=== PATIENT | female | born 1995 | race Caucasian/White ===

== ENCOUNTER 2018-12-28 11:23 | Day surgery (SDC) | payer BC ==
--- NOTE | 2018-12-27 18:56 | PDGENHP ---
History and Physical - Chief Complaint RIGHT HIP PAIN - History of Present Illness 1. Right~Femoroacetabular impingement (RIYA) Cam type,~with~resultant labral tear 2. Right~Borderline Hip Dyplasia HISTORY OF PRESENT ILLNESS: Kimberleeis a~23 y.o.~very~active~female~who I have had the pleasure to consult on today.~I have enjoyed meeting her.~Yany~lives in [place].~~Kimberleeworks at [employer].~~Yany~is single;~yany~has 0~children. ~Kimberleeenjoys running, biking, hiking. Jacy's~right~hip pain started end of December 2017, with~no~recalled trauma or injury, and with~no~previous complaints.~Kimberleedoes not have~a known history of hip dysplasia. She did have a sacral stress fracture on the R side 5 years treated conservatively with rest. Presentation today is of~anterior~right~hip pain deep inside. ~The hip~does not~ wake her~at night and~does~click and catch on~her. Sitting~can be uncomfortable~ for her.~Kimberleedoes~report suffering from lower back pain episodes which preceded her hip pain and has been treated conservatively with chiropractor visits.~ Kimberleehas~participated in physical therapy (started this week at referred by Dr. Sanders)~and~has~tried other conservative measures including dry needling , chiropractic treatments and massage therapy.~Yany~has not~received sufficient symptomatic improvement. No previous hip injections. Jacy~has~utilized medication for pain management, including NSAID.~Kimberlee has used medication intermittently at symptom onset. Kimberleedenies issues with the left~hip. ~ Kimberleeunderstands that~yany~has a hip and pelvis problem which should be researched and wishes to get a better understanding of~her~hip status, followed by an establishment of a treatment strategy, hoping~yany~would be able to get back to~her~well being active life. History: Past medical history:~~ Patient~~has no past medical history on file. Relevant familial history:~None which is relevant~ Past surgical history:~ No. Surgery Anesthesia Year Outcome 1 Tonsillectomy Unknown 2014 Good Kimberleedenies problematic issues with general anesthesia in the past. I have reviewed, verified and agree with the past medical, surgical, family and social history. Current Medications:~has a current medication list which includes the following prescription(s): bupropion and melatonin. ALLERGIES:~has No Known Allergies. Objective: Physical Examination: Kimberleeis 5~feet~2~inches tall and weighs~110~Lbs. Kimberleeis AAO x3; she~is well-nourished, in NAD. Skin is warm and dry. ~Breathing is non-labored. ~CV with RRR by pulse. Abdomen is soft, NTND. Currently,~she~walks with a~normal~gait. Trendelenburg sign is~negative~and proprioception~is normal,~both~sides. She~presents~with moderate~signs of joint laxity.~Beightons Score:~6 (knees, thumbs, pinkys) She~is fit looking. ~~ Lower spine examination is~negative~for sciatic or femoral nerve irritation with negative~SLR &~femoral stretch tests. Range of motion of the spine is normal~for flexion, extension, and rotations,~with no~associated pain. Strength, Sensation and pulses are~normal -~bilaterally Ankles and knees exams are~normal~and~no~mal-alignment is evident.~ Yany~has~no leg length discrepancy. Thigh circumference is~symmetric~with no evidence for muscle atrophy~on both~ sides. Hip ROM (degrees): FL ER At 90~hip FL IR At 90~hip FL AB AD EX IR Neutral hip ER Neutral hip R 115 45 45 40 5 5 50 30 L 115 45 45 45 5 5 55 10 Specific hip and pelvis tests: Impingement Test HARISH Roll Add. Longus R +++ +++ Negative ++ L Negative Negative Negative Negative Glut. Med ITB Posterior Imp R Negative 5/5 strength Negative 5/5 strength Negative L Negative 5/5 strength Negative 5/5 strength Negative Squeeze test measured~normal, but does report some pain along R inner iliac crest/medial to ASIS Bony Symphysis pubis is~pain free~to touch while concentric activity of the rectus abdominis, does not~produce pain at its insertion. Ilio Psos specific tests are~positive for pain during cycling for~the right hip~ and remarkable for no snaps HF has~some pain~the right hip. Anterior, lateral, posterior~capsule tenderness R side Greater trochanteric burse is~pain free~on both hips. Piriformis tests: FAIR is~negative,~with no~local signs of neuritis related to sciatic nerve. SIJs examination is~normal~with~normal~HARISH in relation and local tenderness. Hamstrings tests are~negative~tendinopathy both hips. On a daily basis, the following percentages reflect~Jacy's overall total pain: Deep hip:~100% Predominantly anterior, lateral soreness Imaging: Radiology studies which I~have personally reviewed, analyzed and measured are below: XR: AP of the hip and pelvis: Performed in a~good~technique Coccyx to pubic symphysis distance~0.9~cm. 0~degrees caudal/cephal [place]~Lines are preserved. Minimal~Pathological signs are seen in the Symphysis Pubis.~ Minimal~Pathological signs are seen at the Ischial~tuberosity. ~ Specific measurements show: NSA~ LCE Sourcil~Angle Sharp's angle Lat. Cam Lat. Pincer C.Over~sign Head~Coverage % ATDmm R 132 23 0 43 Neg Neg 12:30 76% 24.0 L 134 29 6 46 Neg Neg 1:00 78% 24.1 Pos. wall sign ISS NAD ~~Dysplasia Comments R Negative Negative 15.1~mm + Flat sourcil L Negative Negative 14.6~mm + Sclerosis Sup. Lat. OA Cysts Joint Space-WBZ Joint Space-Medial R Negative Negative Negative 4.2~mm 5.1~mm L Negative Negative Negative 4.0~mm 4.3~mm X Table lateral: Anterior cam lesion is~seen~on the right hip. Alpha Angle: ~ Right~58~degrees Left~55~degrees MRI shows:~04/23/18 R hip -~hypertrophic labrum seen best on axial view,~no acetabular cysts or edema, labral tear, good cartilage quality~with thick cartilage Impression and plan:~ Jacy~is a~23 y.o.~active female~suffering from~symptomatic~Right~ Femoroacetabular impingement (RIYA) Cam type,~with~resultant labral tear Bilateral~Borderline Hip Dyplasia~causing significant disability to~her~and altering~her~sport and life activities. Physical examination, imaging, and~her~story correspond with the diagnosis mentioned above. I explained that hip dysplasia is a condition wherein the hip joint has excessive play~and instability due to a variety of factors, including the depth and adequacy of the socket, the orientation of the femur bone, and ligament laxity around the hip joint. Dysplasia ranges in severity from borderline to nick, with treatment options being specific to the specific nature of the problem. Left untreated, the instability in the hip joint can cause progressive tearing of the labrum and deterioration of the surface cartilage, ultimately resulting in progressive osteoarthritis of the hip. I explained that femoroacetabular impingement (RIYA - Cam type) arises due to a bony or soft tissue conflict between the femur (ball) and acetabulum (socket) caused by an abnormality in the shape of the femoral head and neck. Over time, repetitive impingement can result in damage to the labrum and adjacent surface cartilage within the socket, ultimately giving rise to progressive osteoarthritis of the hip. I explained that although a labral tear can be a source of pain, it is rarely the root of the problem and typically occurs secondary to an underlying abnormality in the shape and mechanics of the hip joint. I reviewed conservative treatment options for Dysplasia and RIYA including activity modification to avoid positions of impingement or instability, physical therapy, non-steroidal anti-inflammatory medications, and various injections (corticosteroid and PRP) aimed at reducing inflammation in the hip joint or/and preventing dynamic instability and impingement. PRP injections may promote healing and reduce symptoms in certain cases but it will not repair chronically damaged tissue. Although these measures may help to buy time~and reduce current level of symptoms, they are not a definitive solution to the problem given the underlying abnormality in the shape of the hip joint. Patients who have failed conservative management and continue to experience symptoms are candidates for definitive surgical treatment, which may consist of hip arthroscopy alone or in combination with more invasive bony realignment procedures of the hip socket and/or femur called periacetabular osteotomy (KRISTINE) or derotational femoral osteotomy (DFO). Hip arthroscopy typically includes treating the labrum with either repair or reconstruction of the torn labrum; as well as addressing the underlying abnormalities by restoring the normal shape to the hip joint. If the cartilage is damaged a Microfracture surgical procedure may also be necessary to help stimulate the growth of fibrocartilage. If a patient requires a labral reconstruction or a Microfracture, the initial rehabilitation from the surgery may take longer, but the longwall headgate operator results are typically favorable. I reviewed the technical aspects of periacetabular osteotomy (KRISTINE) including risks, benefits, and expected course of recovery. Jacy understands that KRISTINE is an inpatient procedure carried out through two medium sized incisions on the front and back of the hip joint. The hip socket is cut, realigned, and stabilized with 2 3 internal screws. Risks include infection, bleeding, injury to nearby nerves or vessels, stiffness, persistent pain, instability, failure of bony healing, implant related complications, and venous thromboembolic disease. Rarely, revision surgery may be required to address these problems. Risks, potential complications, side effects and recovery from surgical procedure were discussed in length. We explained how this surgery is an open procedure, and though patients tend to do well in the long-term, it involves significant pain in the first 2-4 weeks post-op and a rather lengthy rehab. Overall recovery takes approximately 6 12 months depending on the extent of damage and degree of repair. Jacy understands that she will undergo hip arthroscopy 1 week prior to the KRISTINE to address damage inside the hip joint. Jacy understands that hip arthroscopy and KRISTINE are two separate procedures that are best performed one week apart, with the arthroscopy commencing first to "tighten up" any pathology evident in the hip joint (labral repair, etc.) and the KRISTINE open procedure occurring 7-10 days later to realign the acetabulum. Jacy~will review the info presented. In order to obtain more detailed information regarding the alignment, orientation, and shape of the bony hip and pelvis I will order a CT scan to be performed. The results of the CT scan, including femoral torsion and acetabular version measured values and 3D images, will aid me in deciding on the best treatment strategy and surgical pre-planning. Jacy~is going to contact us after completing her~imaging studies. Jacy~is happy with this plan. I have also supplied~her~with handouts, outlining the expected surgical treatment and rehab involved. I wish~Kimberleeall the best, ~~ Jo José MD History Information - Allergies/Home Medication List Allergies/Adverse Reactions: No Known Allergies Allergy (Unverified 12/23/18 10:26) Home Medications: Bupropion HCl 12/23/18 [Last Taken Unknown] Herbals/Supplements -Info Only 12/23/18 [Last Taken Unknown] Melatonin 12/23/18 [Last Taken Unknown] Xanax 12/23/18 [Last Taken Unknown] I have personally reviewed and updated: medical history Review of Systems Review of Systems: Physical Exam Physical Exam:
--- NOTE | 2018-12-28 11:47 | PDANEPAE ---
ANE History of Present Illness here for hip scope ANE Past Medical History - Cardiovascular History Hx Hypertension: No Hx Arrhythmias: No Hx Chest Pain: No Hx Coronary Artery / Peripheral Vascular Disease: No Hx CHF / Valvular Disease: No Hx Palpitations: No - Pulmonary History Hx COPD: No Hx Asthma/Reactive Airway Disease: No Hx Recent Upper Respiratory Infection: No Hx Oxygen in Use at Home: No Hx Sleep Apnea: No - Neurologic History Hx Cerebrovascular Accident: No Hx Seizures: No Hx Dementia: No Neurologic History Comment: OCCAS MIGRAINES - Endocrine History Hx Diabetes: No - Renal History Hx Renal Disorders: No - Liver History Hx Hepatic Disorders: No - Neurological & Psychiatric Hx Hx Neurological and Psychiatric Disorders: Yes Neurological / Psychiatric History Comment: ANXIETY & DEPRESSION - Cancer History Hx Cancer: No - Congenital Disorder History Hx Congenital Disorders: No - GI History Hx Gastrointestinal Disorders: No - Other Health History Other Health History: NEG - Chronic Pain History Chronic Pain: Yes (R HIP) - Surgical History Prior Surgeries: TONSILECTOMY. WISDOM TEETH ANE Review of Systems Review of systems is: negative Review of Systems: - Exercise capacity Exercise capacity: >=4 METS ANE Patient History - Allergies Allergies/Adverse Reactions: No Known Allergies Allergy (Unverified 12/23/18 10:26) - Home Medications Home medications: home medication list seen and reviewed Home Medications: Bupropion HCl 12/23/18 [Last Taken Unknown] Herbals/Supplements -Info Only 12/23/18 [Last Taken Unknown] Melatonin 12/23/18 [Last Taken Unknown] Xanax 12/23/18 [Last Taken Unknown] - NPO status NPO Status: no food or drink >8 hours - Anes Hx Anes Hx: no prior problems - Smoking Hx Smoking Status: Never smoked - Family Anes Hx Family Hx Anesthesia Complications: NEG ANE Labs/Vital Signs - Vital Signs Vital Signs: reviewed preoperatively; see RN documention for details ANE Physical Exam - Airway Neck exam: FROM Mallampati Score: Class 1 Mouth exam: normal dental/mouth exam - Pulmonary Pulmonary: no respiratory distress - Cardiovascular Cardiovascular: regular rate and rhythym - ASA Status ASA Status: II ANE Anesthesia Plan Anesthesia Plan: general endotracheal anesthesia
[2018-12-28] MEDS ORDERED: ceFAZolin 2 GM/DEXTROSE 100 ML IV ONE (12:54)
[2018-12-28] MEDS ORDERED: PREGABALIN 150 MG CAP PO ONE (12:54)
[2018-12-28] MEDS ORDERED: ACETAMINOPHEN 500 MG TAB PO ONE (12:54)
[2018-12-28] MEDS ORDERED: LR 1,000 ML IV ONE (13:08)
[2018-12-28] MEDS ORDERED: DIAZEPAM 5 MG/ML 1 ML SYR IVP PRN (13:32)
[2018-12-28] MEDS ORDERED: HYDROmorphONE/DILAUDID 2 MG/ML INJ IVP PRN (13:32)
[2018-12-28] MEDS ORDERED: fentaNYL 100 MCG/2 ML INJ IVP PRN (13:32)
[2018-12-28] MEDS ORDERED: ONDANSETRON 4 MG/2 ML VIAL IVP PRN (13:32)
[2018-12-28] MEDS ORDERED: LR 500 ML IV PRN (13:32)
[2018-12-28] MEDS ORDERED: ALBUTEROL 3 ML DEYVIAL IH PRN (13:32)
[2018-12-28] MEDS ORDERED: DEXAMETHASONE 4 MG/ML VIAL IVP PRN (13:32)
[2018-12-28] MEDS ORDERED: NS 500 ML IV PRN (13:32)
[2018-12-28] MEDS ORDERED: NALOXONE HCL 0.4 MG/ML INJ IVP PRN ×2 (13:32→16:53)
[2018-12-28] MEDS ORDERED: BUPIVACAINE 0.25% 30 ML SDV ONE (15:28)
[2018-12-28] MEDS ORDERED: EPINEPHrine 30 MG/30 ML MDV (0.1 MG/0.1 ML) ONE (15:28)
--- NOTE | 2018-12-28 15:56 | POSTANESTH ---
Post Anesthetic Evaluation Cardiovascular Status: Normal, Stable Respiratory Status: Normal, Stable Level of Consciousness/Mental Status: Can Participate in Eval Pain Control: Adequate, Prn Tx Ordered Nausea/Vomiting Control: Adequate, Prn Tx Ordered Complications Possibly Related to Anesthesia: None Noted
[2018-12-28] MEDS ORDERED: oxyCODONE IR 5 MG TAB PO PRN (16:53)
[2018-12-28] MEDS: HYDROCODONE/APAP 5/325 TAB PO PRN ×2 (17:10→17:52)
[2018-12-28 18:19] VITALS: BP 105/60
== END 2018-12-28 18:31 | disposition home or self-care (01) ==
LOC: FSGY 11:23
PROVIDERS: ATTEND Orthopaedic Surgery Sports Medicine
PROC: 0SQ94ZZ Repair Right Hip Joint, Percutaneous Endoscopic Approach (ICD-10-PCS; principal; 2018-12-28 13:00)
DX: M25.851 Other specified joint disorders, right hip (principal); M24.151 Other articular cartilage disorders, right hip
CPT/HCPCS: C1713; J0171; J0690

== ENCOUNTER 2019-01-04 05:46 | Inpatient (IN) | payer BC ==
--- NOTE | 2019-01-03 21:05 | PDGENHP ---
History and Physical - Chief Complaint RIGHT HIP PAIN - History of Present Illness 1. Right~Femoroacetabular impingement (RIYA) Cam type,~with~resultant labral tear 2. Right~Borderline Hip Dyplasia HISTORY OF PRESENT ILLNESS: Kimberleeis a~23 y.o.~very~active~female~who I have had the pleasure to consult on today.~I have enjoyed meeting her.~Yany~lives in [place].~~Kimberleeworks at [employer].~~Yany~is single;~yany~has 0~children. ~Kimberleeenjoys running, biking, hiking. Jacy's~right~hip pain started end of December 2017, with~no~recalled trauma or injury, and with~no~previous complaints.~Kimberleedoes not have~a known history of hip dysplasia. She did have a sacral stress fracture on the R side 5 years treated conservatively with rest. Presentation today is of~anterior~right~hip pain deep inside. ~The hip~does not~ wake her~at night and~does~click and catch on~her. Sitting~can be uncomfortable~ for her.~Kimberleedoes~report suffering from lower back pain episodes which preceded her hip pain and has been treated conservatively with chiropractor visits.~ Kimberleehas~participated in physical therapy (started this week at referred by Dr. Sanders)~and~has~tried other conservative measures including dry needling , chiropractic treatments and massage therapy.~Yany~has not~received sufficient symptomatic improvement. No previous hip injections. Jacy~has~utilized medication for pain management, including NSAID.~Kimberlee has used medication intermittently at symptom onset. Kimberleedenies issues with the left~hip. ~ Kimberleeunderstands that~yany~has a hip and pelvis problem which should be researched and wishes to get a better understanding of~her~hip status, followed by an establishment of a treatment strategy, hoping~yany~would be able to get back to~her~well being active life. History: Past medical history:~~ Patient~~has no past medical history on file. Relevant familial history:~None which is relevant~ Past surgical history:~ No. Surgery Anesthesia Year Outcome 1 Tonsillectomy Unknown 2014 Good Kimberleedenies problematic issues with general anesthesia in the past. I have reviewed, verified and agree with the past medical, surgical, family and social history. Current Medications:~has a current medication list which includes the following prescription(s): bupropion and melatonin. ALLERGIES:~has No Known Allergies. Objective: Physical Examination: Kimberleeis 5~feet~2~inches tall and weighs~110~Lbs. Kimberleeis AAO x3; she~is well-nourished, in NAD. Skin is warm and dry. ~Breathing is non-labored. ~CV with RRR by pulse. Abdomen is soft, NTND. Currently,~she~walks with a~normal~gait. Trendelenburg sign is~negative~and proprioception~is normal,~both~sides. She~presents~with moderate~signs of joint laxity.~Beightons Score:~6 (knees, thumbs, pinkys) She~is fit looking. ~~ Lower spine examination is~negative~for sciatic or femoral nerve irritation with negative~SLR &~femoral stretch tests. Range of motion of the spine is normal~for flexion, extension, and rotations,~with no~associated pain. Strength, Sensation and pulses are~normal -~bilaterally Ankles and knees exams are~normal~and~no~mal-alignment is evident.~ Yany~has~no leg length discrepancy. Thigh circumference is~symmetric~with no evidence for muscle atrophy~on both~ sides. Hip ROM (degrees): FL ER At 90~hip FL IR At 90~hip FL AB AD EX IR Neutral hip ER Neutral hip R 115 45 45 40 5 5 50 30 L 115 45 45 45 5 5 55 10 Specific hip and pelvis tests: Impingement Test HARISH Roll Add. Longus R +++ +++ Negative ++ L Negative Negative Negative Negative Glut. Med ITB Posterior Imp R Negative 5/5 strength Negative 5/5 strength Negative L Negative 5/5 strength Negative 5/5 strength Negative Squeeze test measured~normal, but does report some pain along R inner iliac crest/medial to ASIS Bony Symphysis pubis is~pain free~to touch while concentric activity of the rectus abdominis, does not~produce pain at its insertion. Ilio Psos specific tests are~positive for pain during cycling for~the right hip~ and remarkable for no snaps HF has~some pain~the right hip. Anterior, lateral, posterior~capsule tenderness R side Greater trochanteric burse is~pain free~on both hips. Piriformis tests: FAIR is~negative,~with no~local signs of neuritis related to sciatic nerve. SIJs examination is~normal~with~normal~HARISH in relation and local tenderness. Hamstrings tests are~negative~tendinopathy both hips. On a daily basis, the following percentages reflect~Jacy's overall total pain: Deep hip:~100% Predominantly anterior, lateral soreness Imaging: Radiology studies which I~have personally reviewed, analyzed and measured are below: XR: AP of the hip and pelvis: Performed in a~good~technique Coccyx to pubic symphysis distance~0.9~cm. 0~degrees caudal/cephal [place]~Lines are preserved. Minimal~Pathological signs are seen in the Symphysis Pubis.~ Minimal~Pathological signs are seen at the Ischial~tuberosity. ~ Specific measurements show: NSA~ LCE Sourcil~Angle Sharp's angle Lat. Cam Lat. Pincer C.Over~sign Head~Coverage % ATDmm R 132 23 0 43 Neg Neg 12:30 76% 24.0 L 134 29 6 46 Neg Neg 1:00 78% 24.1 Pos. wall sign ISS NAD ~~Dysplasia Comments R Negative Negative 15.1~mm + Flat sourcil L Negative Negative 14.6~mm + Sclerosis Sup. Lat. OA Cysts Joint Space-WBZ Joint Space-Medial R Negative Negative Negative 4.2~mm 5.1~mm L Negative Negative Negative 4.0~mm 4.3~mm X Table lateral: Anterior cam lesion is~seen~on the right hip. Alpha Angle: ~ Right~58~degrees Left~55~degrees MRI shows:~04/23/18 R hip -~hypertrophic labrum seen best on axial view,~no acetabular cysts or edema, labral tear, good cartilage quality~with thick cartilage Impression and plan:~ Jacy~is a~23 y.o.~active female~suffering from~symptomatic~Right~ Femoroacetabular impingement (RIYA) Cam type,~with~resultant labral tear Bilateral~Borderline Hip Dyplasia~causing significant disability to~her~and altering~her~sport and life activities. Physical examination, imaging, and~her~story correspond with the diagnosis mentioned above. I explained that hip dysplasia is a condition wherein the hip joint has excessive play~and instability due to a variety of factors, including the depth and adequacy of the socket, the orientation of the femur bone, and ligament laxity around the hip joint. Dysplasia ranges in severity from borderline to nick, with treatment options being specific to the specific nature of the problem. Left untreated, the instability in the hip joint can cause progressive tearing of the labrum and deterioration of the surface cartilage, ultimately resulting in progressive osteoarthritis of the hip. I explained that femoroacetabular impingement (RIYA - Cam type) arises due to a bony or soft tissue conflict between the femur (ball) and acetabulum (socket) caused by an abnormality in the shape of the femoral head and neck. Over time, repetitive impingement can result in damage to the labrum and adjacent surface cartilage within the socket, ultimately giving rise to progressive osteoarthritis of the hip. I explained that although a labral tear can be a source of pain, it is rarely the root of the problem and typically occurs secondary to an underlying abnormality in the shape and mechanics of the hip joint. I reviewed conservative treatment options for Dysplasia and RIYA including activity modification to avoid positions of impingement or instability, physical therapy, non-steroidal anti-inflammatory medications, and various injections (corticosteroid and PRP) aimed at reducing inflammation in the hip joint or/and preventing dynamic instability and impingement. PRP injections may promote healing and reduce symptoms in certain cases but it will not repair chronically damaged tissue. Although these measures may help to buy time~and reduce current level of symptoms, they are not a definitive solution to the problem given the underlying abnormality in the shape of the hip joint. Patients who have failed conservative management and continue to experience symptoms are candidates for definitive surgical treatment, which may consist of hip arthroscopy alone or in combination with more invasive bony realignment procedures of the hip socket and/or femur called periacetabular osteotomy (KRISTINE) or derotational femoral osteotomy (DFO). Hip arthroscopy typically includes treating the labrum with either repair or reconstruction of the torn labrum; as well as addressing the underlying abnormalities by restoring the normal shape to the hip joint. If the cartilage is damaged a Microfracture surgical procedure may also be necessary to help stimulate the growth of fibrocartilage. If a patient requires a labral reconstruction or a Microfracture, the initial rehabilitation from the surgery may take longer, but the chronic condition nurse results are typically favorable. I reviewed the technical aspects of periacetabular osteotomy (KRISTINE) including risks, benefits, and expected course of recovery. Jacy understands that KRISTINE is an inpatient procedure carried out through two medium sized incisions on the front and back of the hip joint. The hip socket is cut, realigned, and stabilized with 2 3 internal screws. Risks include infection, bleeding, injury to nearby nerves or vessels, stiffness, persistent pain, instability, failure of bony healing, implant related complications, and venous thromboembolic disease. Rarely, revision surgery may be required to address these problems. Risks, potential complications, side effects and recovery from surgical procedure were discussed in length. We explained how this surgery is an open procedure, and though patients tend to do well in the long-term, it involves significant pain in the first 2-4 weeks post-op and a rather lengthy rehab. Overall recovery takes approximately 6 12 months depending on the extent of damage and degree of repair. Jacy understands that she will undergo hip arthroscopy 1 week prior to the KRISTINE to address damage inside the hip joint. Jacy understands that hip arthroscopy and KRISTINE are two separate procedures that are best performed one week apart, with the arthroscopy commencing first to "tighten up" any pathology evident in the hip joint (labral repair, etc.) and the KRISTINE open procedure occurring 7-10 days later to realign the acetabulum. Jacy~will review the info presented. In order to obtain more detailed information regarding the alignment, orientation, and shape of the bony hip and pelvis I will order a CT scan to be performed. The results of the CT scan, including femoral torsion and acetabular version measured values and 3D images, will aid me in deciding on the best treatment strategy and surgical pre-planning. Jacy~is going to contact us after completing her~imaging studies. Jacy~is happy with this plan. I have also supplied~her~with handouts, outlining the expected surgical treatment and rehab involved. I wish~Kimberleeall the best, ~~ Jo José MD History Information - Allergies/Home Medication List Allergies/Adverse Reactions: No Known Allergies Allergy (Verified 12/30/18 11:53) Home Medications: buPROPion XL [Wellbutrin Xl] 150 mg PO DAILY 12/23/18 [Last Taken Unknown] Calcium Carbonate [Oyster Shell Calcium 500 mg (*)] 500 mg PO DAILY 12/30/18 [ Last Taken Unknown] Diazepam [Valium 2 MG (*)] 2 mg PO Q6HRS 12/30/18 [Last Taken Unknown] Ibuprofen [Motrin (*)] 200 mg PO DAILY PRN 12/30/18 [Last Taken Unknown] Multivitamins [Multivitamin (*)] 1 each PO DAILY 12/30/18 [Last Taken Unknown] Naproxen Sodium [Naproxen Cr] 500 mg PO BID 12/30/18 [Last Taken Unknown] Ondansetron HCl [Zofran] 4 mg PO Q6HRS PRN 12/30/18 [Last Taken Unknown] oxyCODONE/APAP 5/325 [Percocet 5/325 (*)] 1 - 2 tab PO Q6HRS 12/30/18 [Last Taken Unknown] I have personally reviewed and updated: medical history - Social History Smoking Status: Never smoked Review of Systems Review of Systems: Physical Exam Physical Exam: Temp Pulse Resp BP Pulse Ox 36.8 C 65 16 106/72 97 12/28/18 11:56 12/28/18 11:56 12/28/18 11:56 12/28/18 11:56 12/28/18 11:56
[~2019-01-04 05:46] MED LIST: BUPIVACAINE 0.25% 30 ML SDV ONE; DEXAMETHASONE 4 MG/ML VIAL ONE; EPINEPHrine 30 MG/30 ML MDV (0.1 MG/0.1 ML) ONE; LR 1,000 ML IV ONE; ONDANSETRON 4 MG/2 ML VIAL ONE; PROPOFOL 200 MG/20 ML VIAL ONE; PROPOFOL/EMULSION 500 MG/50 ML BOTTLE IV ONE; fentaNYL 100 MCG/2 ML INJ ONE
[2019-01-04] MEDS ORDERED: ACETAMINOPHEN 500 MG TAB PO ONE (06:14)
[2019-01-04] MEDS ORDERED: LR 1,000 ML IV ONE (06:14)
[2019-01-04] MEDS ORDERED: PREGABALIN 150 MG CAP PO ONE (06:14)
[2019-01-04] MEDS ORDERED: SCOPOLAMINE HYDROBROMIDE 1 MG/3 DAYS PATCH TD ONE (06:14)
[2019-01-04] MEDS ORDERED: ceFAZolin 2 GM/DEXTROSE 100 ML IV ONE (06:14)
[2019-01-04] MEDS ORDERED: TRANEXAMIC ACID 1,000 MG in NS 100 ML IV ONE (06:14)
[2019-01-04] MEDS ORDERED: CITRATE DEXTROSE SOLN 500 ML BAG ONE (06:59)
[2019-01-04] MEDS ORDERED: MIDAZOLAM 2 MG/2 ML VIAL ONE (07:06)
[2019-01-04] MEDS ORDERED: fentaNYL 100 MCG/2 ML INJ ONE ×3 (07:09→14:13)
[2019-01-04] MEDS ORDERED: LIDOCAINE 2% 100 MG/5 ML SYR ONE (07:09)
[2019-01-04] MEDS ORDERED: PROPOFOL 200 MG/20 ML VIAL ONE ×3 (07:09→12:27)
[2019-01-04] MEDS ORDERED: DEXAMETHASONE 4 MG/ML VIAL ONE (07:09)
[2019-01-04] MEDS ORDERED: ROCURONIUM 100 MG/10 ML VIAL ONE (07:09)
[2019-01-04] MEDS ORDERED: morphINE PF 5 MG/10 ML INJ ONE (07:11)
[2019-01-04] MEDS ORDERED: MIDAZOLAM 2 MG/2 ML VIAL IVP ONE (09:51)
--- NOTE | 2019-01-04 09:51 | PDANEPAE ---
ANE History of Present Illness R hip dysplasia, here for R KRISTINE ANE Past Medical History - Cardiovascular History Hx Hypertension: No Hx Arrhythmias: No Hx Chest Pain: No Hx Coronary Artery / Peripheral Vascular Disease: No Hx CHF / Valvular Disease: No Hx Palpitations: No - Pulmonary History Hx COPD: No Hx Asthma/Reactive Airway Disease: No Hx Recent Upper Respiratory Infection: No Hx Oxygen in Use at Home: No Hx Sleep Apnea: No Sleep Apnea Screening Result - Last Documented: Negative - Neurologic History Hx Cerebrovascular Accident: No Hx Seizures: No Hx Dementia: No Neurologic History Comment: OCCAS MIGRAINES - Endocrine History Hx Diabetes: No - Renal History Hx Renal Disorders: No - Liver History Hx Hepatic Disorders: No - Neurological & Psychiatric Hx Hx Neurological and Psychiatric Disorders: Yes Neurological / Psychiatric History Comment: ANXIETY & DEPRESSION - Cancer History Hx Cancer: No - Congenital Disorder History Hx Congenital Disorders: No - GI History Hx Gastrointestinal Disorders: No - Other Health History Other Health History: none - Chronic Pain History Chronic Pain: Yes (R HIP) - Surgical History Prior Surgeries: TONSILECTOMY. WISDOM TEETH. femoroplasty/labral tear repair ANE Review of Systems Review of Systems: - Exercise capacity METS (RN): 5 METS ANE Patient History - Allergies Allergies/Adverse Reactions: No Known Allergies Allergy (Verified 12/30/18 11:53) - Home Medications Home Medications: buPROPion XL [Wellbutrin Xl] 150 mg PO DAILY 12/23/18 [Last Taken 01/03/19] Calcium Carbonate [Oyster Shell Calcium 500 mg (*)] 500 mg PO DAILY 12/30/18 [ Last Taken 12/14/18] Diazepam [Valium 2 MG (*)] 2 mg PO Q6HRS 12/30/18 [Last Taken 12/30/18] Ibuprofen [Motrin (*)] 200 mg PO DAILY PRN 12/30/18 [Last Taken 12/14/18] Multivitamins [Multivitamin (*)] 1 each PO DAILY 12/30/18 [Last Taken 12/14/18] Naproxen Sodium [Naproxen Cr] 500 mg PO BID 12/30/18 [Last Taken 01/02/19] Ondansetron HCl [Zofran] 4 mg PO Q6HRS PRN 12/30/18 [Last Taken 12/30/18] oxyCODONE/APAP 5/325 [Percocet 5/325 (*)] 1 - 2 tab PO Q6HRS 12/30/18 [Last Taken 12/30/18] - NPO status NPO Since - Liquids (Date): 01/03/19 NPO Since - Liquids (Time): 22:30 NPO Since - Solids (Date): 01/03/19 NPO Since - Solids (Time): 20:00 - Smoking Hx Smoking Status: Never smoked - Family Anes Hx Family Hx Anesthesia Complications: none ANE Labs/Vital Signs - Labs Result Diagrams: 01/04/19 06:50 - Vital Signs Blood Pressure: 102/74 Heart Rate: 71 Respiratory Rate: 20 O2 Sat (%): 97 Height: 157.48 cm Weight: 52.163 kg ANE Physical Exam - Airway Neck exam: FROM Mallampati Score: Class 1 Mouth exam: normal dental/mouth exam - Pulmonary Pulmonary: no respiratory distress, no rales or rhonchi - Cardiovascular Cardiovascular: regular rate and rhythym, no murmur, rub, or gallop - ASA Status ASA Status: II ANE Anesthesia Plan Anesthesia Plan: general endotracheal anesthesia Regional Anesthesia: POPC/PSR (IT narcotics, 150mcg morphine) Total IV Anesthesia: No
[2019-01-04] MEDS ORDERED: ONDANSETRON 4 MG/2 ML VIAL IVP PRN ×2 (10:06→14:48)
[2019-01-04] MEDS ORDERED: NALOXONE HCL 0.4 MG/ML INJ IVP PRN ×3 (10:06→14:53)
[2019-01-04] MEDS ORDERED: oxyCODONE IR 5 MG TAB PO PRN ×2 (10:07→14:56)
[2019-01-04] MEDS ORDERED: LR 500 ML IV PRN (10:07)
[2019-01-04] MEDS ORDERED: MEPERIDINE 25 MG/0.5 ML AMP IVP PRN (10:07)
[2019-01-04] MEDS ORDERED: fentaNYL 100 MCG/2 ML INJ IVP PRN (10:07)
[2019-01-04] MEDS ORDERED: PROMETHAZINE HCL 25 MG/ML INJ IVP PRN (10:07)
[2019-01-04] MEDS ORDERED: DIAZEPAM 5 MG/ML 1 ML SYR IVP PRN (10:07)
[2019-01-04] MEDS ORDERED: SUGAMMADEX SODIUM 200 MG/2 ML VIAL IVP ONE (11:52)
[2019-01-04] MEDS ORDERED: PHENYLEPHRINE HCL 100 MCG/ML SYR ONE (11:52)
[2019-01-04] MEDS ORDERED: HYDROmorphONE/DILAUDID 2 MG/ML INJ ONE (11:56)
[2019-01-04] MEDS ORDERED: REMIFENTANIL HCL 1 MG VIAL ONE (13:48)
[2019-01-04] MEDS ORDERED: MAGNESIUM HYDROXIDE 30 ML UDCUP PO PRN (14:48)
[2019-01-04] MEDS ORDERED: ONDANSETRON DISINTEGRATING 4 MG TAB PO PRN (14:48)
[2019-01-04] MEDS ORDERED: BISACODYL 10 MG SUPP PR PRN (14:48)
[2019-01-04] MEDS ORDERED: ACETAMINOPHEN 325 MG TAB PO PRN (14:48)
[2019-01-04] MEDS ORDERED: LACTULOSE 20 GM/30 ML UDCUP PO PRN (14:48)
[2019-01-04] MEDS ORDERED: DIAZEPAM 2 MG TAB PO PRN (14:48)
[2019-01-04] MEDS ORDERED: diphenhydrAMINE 25 MG CAP PO PRN (14:53)
[2019-01-04] MEDS ORDERED: HYDROmorphONE/DILAUDID 6 MG/30 ML PCA IV PRN (14:53)
--- NOTE | 2019-01-04 15:20 | SUROPNOTE ---
ROSA Operative Report - Surgery Surgery was performed at [facility] on~01/04/19~ Diagnosis:~Right 1. Hip Acetabular Dysplasia ~ Operation: Right~Shanell Acetabular Osteotomy (KRISTINE) Surgeon: Dagoberto Olivarez MD Bath Attendant:~~Jo Babcock MD Anesthetic: General + spinal Procedure: General anesthetic. Antibiotics given. Cell saver in use. Fluoroscopy. Phase 1: Position lateral, diagonal skin incision between ischial tuberosity and greater trochanter as for posterior hip approach. Blunt split of glut max fibers. Identification of fat pad overlying sciatic nerve. Exposure of sciatic nerve under fat pad, gently retracting it away-medially to ischial tuberosity. Exposure of subcotoloid fossa proximal to short rotators. UsingPrecision saw, osteotomy of subcotoloid davyz45-84 mm short of (lateral to) thesciatic notch. Closure of lateral cut. Patient is turned supine. Phase 2: Skin incision just distal to ASIS. Using diathermy the iliac spine was exposed and inguinal ligament + Sartorious were retracted medially, taking the LFCN with them, protecting it. Inner ilium was dissected from iliacus muscle bluntly , with a cob and swab. Dissection continued towards lateral superior ramus pubis. Using fluoroscopy an osteotomy of lateral superior ramus, just medial to tear drop, was performed with~curved fish mouth osteotome. Phase 3: Osteotomy lines of the ilium were marked with diathermy as pre planned according to XR/CT and expected correction of acatabulum. 2 Shanz screws were drilled into central acetabular fragment, corresponding with planned correction angles, in order to mobilize central acetabular fragment after osteotomy is complete. ~Iliac osteotomy was performed with reciprocating saw and fish mouth osteotome (the osteotome was not required to be driven towards the nerve as the cut was almost fully complete from the back.The main acetabular fragment was moved to realign weight bearing position. After confirmation of correction using fluoroscopy in AP and false profile planes, the fragment was fixed with~3 -~5.5mm~~full threaded~screws. The middle screw broke through the posterior iliac crest cortex and shifted 1mm. I decided to keep it in place by stitching its head with No. 1 Vicryl. Inguinal ligament and Sartorious were attached back to ASIS through drill holes. Incision was closed according to soft tissue layers. Skin was closed with~subdermal Monocryl. Final fluoro shots were obtained to confirm position/correction. After surgery~Jacy~had peroneal distribution~motor compromise, in the form of drop foot. I decided to explore the nerve and use neuro monitoring to verify function. I positioned her lateral and explored the nerve via same incision. Nerve looked clean and intact without and signs of damage or bleeding. Perineurium was intact and nerve was free. No sharp point where seen from under the external rotators. No gap or damage was seen at/to the external rotators. Neuro monitoring (CMAP) showed normal muscle function (tibial and peroneal divisions) of nerve at the level of the osteotomy and distal to it. Function was absent or compromised when simulating the nerve more proximally towards the greater sciatic notch, without any visual explanation as nerve looked intact proximal and distal to the point where the needle stopped simulating muscle function when nerve was touched. That is despite the fact the patient had good tibial function while awake but no tibial simulation at this proximal point during exploration. SSEP for afferent conduction showed good function all the way foot-brain supporting un-damaged wiring or the nerve. ~ Dr Zhao Tucker (neuro-surgeon was called in and concurred with the findings of clean, undamaged intact nerve). Patient woke up from exploration with what seemed to be slight dorsi-flexion of toes but this could have been just spring affect after she actively planta flexed. 30 minutes from surgery still no change is seen. Plan: observation. Hypothesis: - Low blood pressure to area resulting in temporary ischimia. - Stretching injury (was not seen or suspected during surgery). - Spinal anesthesia affects --- Evaluation under anesthesia: IR at 90 degrees hip flexion prior to KRISTINE was~45~degrees and after KRISTINE was 30~ degrees. Bleeding:~400~cc into cell-saver, 170~of blood products were returned to patient. Post op instructions: 1.~Non~weight bearing crutches for 6 weeks (toe touch is allowed when standing) 2. Epidural analgesia for 24-48 hours 3. Continuous SCD 4. Avoid hip flexion past~80 and hip External rotation.~ 5. PT according to my recommendations at follow up visit Kind regards, Dr. Dagoberto Olivarez .
--- NOTE | 2019-01-04 15:26 | PDMN ---
Medical Necessity Medical necessity: Pt meets inpt criteria per MD order and Musculoskeletal surgery or procedure, periacetabular osteotomy, MC IP only list. 23 y/o w/ R femoroacetabular impingement w/resultant labral tear and R borderline hip dysplasia admitted for above surgery and post-op care.
[2019-01-04] MEDS: NS 1,000 ML IV SCH (15:59)
[2019-01-04] MEDS: NAPROXEN SODIUM 220 MG TAB PO SCH ×2 (16:35→21:45)
--- NOTE | 2019-01-04 16:37 | POSTANESTH ---
Post Anesthetic Evaluation Cardiovascular Status: Normal, Stable Respiratory Status: Normal, Stable Level of Consciousness/Mental Status: Can Participate in Eval, Alert and Oriented Pain Control: Adequate, Prn Tx Ordered Nausea/Vomiting Control: Adequate, Prn Tx Ordered Complications Possibly Related to Anesthesia: Other, See Comments (Pt on initial awakening from an uneventful and sable anesthetic was not able to dorsifelx her right foot. It was decided to re-induce and explore the surgical site for sciatic injury/compression. Neurosurg was consulted and neuromonitoring was able to demonstrate intact SSEPs with patchy MEPs illustrating a lesion at the level of the surgical site. On exam in PACU she was able to dorsiflex her toes a tiny bit and admitted to numbness and tingling in the lower leg and foot. She could not dorsiflex her foot at the ankle at all on my exam. In speaking to her and neurosurgery, the lesion and dysfunction is believed to be transient and she will need an EMG in about 4 weeks. I will follow up with her tomorrow Of note, the spinal was done at 0720 and with IT PF morphine only, no local. I used 150mcg morphine and it was a simple single stick at L4-L5, no paraesthesias, no blood and good barbatage.)
[2019-01-04] MEDS: oxyCODONE IR 5 MG TAB PO SCH ×2 (17:27→21:46)
[2019-01-04] MEDS: POLYETHYLENE GLYCOL 3350 17 GM PKT PO PRN (17:29)
--- NOTE | 2019-01-04 19:37 | GCON ---
[f rep st] CONSULTATION INTRAOPERATIVE CONSULT DATE OF CONSULTATION: 01/04/2019 REFERRING PHYSICIAN: Dagoberto Olivarez MD REASON FOR CONSULTATION: Footdrop following pelvic osteotomy. I was asked by Dr. Olivarez to come in to inspect the sciatic nerve at the surgical site for his right periacetabular osteotomy. The patie nt apparently woke from the procedure and had a right foot drop and he had taken the patient back to explore the operative site to look for damage to the nerve, itself. We now had elective diagnostic data available to us and stimulating at 1 milliamp on the frontal divi briana of the nerve at the operative site. We were able to get very good stimulation distal to a very discrete place on the nerve at the operative site, but just proximal to this, we saw no motor functio n and it was reproducible. We tried stimulating several different times both along the ventral and d orsal aspect of the medial aspect of the sciatic nerve, as well as the lateral aspect of the sciatic nerve. There was a very discrete place where signals were lost proximal to this area and it was comp letely reproducible. We visually inspected the nerve. There was absolutely no evidence of disruptio n to the epidurogram, itself. The nerve, itself, did not appear to be mechanically compressed in thi s region. I could see no physical damage to the nerve whatsoever despite the functional change and s timulation behavior of the nerve at that discrete site. There was no mechanical intervention that I suggested at that time. We then did SSEPs and there were not baseline or contralateral SSEPs for com parison sake; however, there was evidence of sensory data traveling from the distal right leg to the brain and SSEPs were grossly intact in the right leg, again without comparison or baseline data. Thi s does suggest that some sensory information is getting through the area in question. I did not have any further suggestions for Dr. Rodriguez and thought that the patient should be allowed to recover and EMG followup several weeks after surgery might be reasonable if the footdrop remains persistent. /[id number]/MODL
[2019-01-04] MEDS: SENNOSIDES/DOCUSATE SODIUM TAB PO SCH (21:46)
[2019-01-05] MEDS: NS 1,000 ML IV SCH ×2 (01:32→11:32)
[2019-01-05] MEDS: oxyCODONE IR 5 MG TAB PO SCH ×6 (01:35→21:29)
[2019-01-05] MEDS ORDERED: PATCH REMOVAL 1 EA PATCH TD ONE (07:00)
[2019-01-05] MEDS: buPROPion XL 150 MG TAB PO SCH (10:22)
[2019-01-05] MEDS: NAPROXEN SODIUM 220 MG TAB PO SCH ×3 (10:22→21:29)
[2019-01-05] MEDS: PANTOPRAZOLE SODIUM 40 MG TAB PO SCH (10:22)
[2019-01-05] MEDS: CALCIUM CARBONATE 500 MG TAB PO SCH (10:22)
[2019-01-05] MEDS: SENNOSIDES/DOCUSATE SODIUM TAB PO SCH ×2 (10:23→21:30)
--- NOTE | 2019-01-05 12:41 | GCON ---
[f rep st] CONSULTATION DATE OF CONSULTATION: 01/05/2019 REFERRING PHYSICIAN: Dagoberto Olivarez MD REASON FOR CONSULTATION: Medical evaluation. 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 I am visiting her in the postop setting. PAST MEDICAL HISTORY: Depression. PAST SURGICAL HISTORY: Tonsillectomy. CURRENT MEDICATIONS: Bupropion. ALLERGIES: None. REVIEW OF SYSTEMS: Comprehensive 10-point review of systems is negative other than noted right lower extremity numbness and tingling with footdrop from the knee down, as well as hip pain. She denies a ny nausea, vomiting, or diarrhea. Denies any fevers, sweats, or night chills. Denies any dyspnea, s hortness of breath, or chest pain. Denies any blurred vision or other complaints. PHYSICAL EXAM: GENERAL: The patient is alert, oriented, and in no acute distress. VITAL SIGNS: Af ebrile at 37.2, pulse 68, respiratory rate 15, blood pressure 98/59, and she is saturating 96% on jordin m air. HEENT: Normocephalic, atraumatic. Mucosal membranes are moist. Pupils are equal, round, an d reactive to light. RESPIRATORY: Lungs are clear to auscultation bilaterally. No rhonchi or wheez es noted. CARDIOVASCULAR: Regular rate and rhythm. No gallop or murmur appreciated. GASTROINTESTIN AL: Bowel sounds are positive. Soft and nontender. There is no guarding or rigidity noted. EXTREM ITIES: The right lower extremity has noted footdrop, as well as decreased sensation. Other extremit ies are intact. No clubbing or cyanosis appreciated. SKIN: Without rashes or lesions. NEUROLOGIC: The patient is focally intact. FAMILY HISTORY: Benign. SOCIAL HISTORY: The patient denies any tobacco use. Denies any illicit drugs. LABORATORY EVALUATION: Hemoglobin 9.8 with a hematocrit of 28.7. RADIOLOGICAL EVALUATION: Excellent intraoperative alignment of the right supra-acetabular ostomy. ASSESSMENT/PLAN: The patient is a 23-year-old female, who presents after scheduled surgical interven tion with Dr. Olivarez. I am consulting for medical management. We will continue her previously pres cribed home medications for her depression. Pain management is being handled by the surgical team. The patient does have a noted right-sided footdrop, as well as numbness and tingling in her right akbar f. This is being evaluated by Dr. Tucker of Neurosurgery, as well as Dr. Olivarez and his team. We will be happy to continue to follow along with this patient's care during this hospitalization. Tomasz patterson for this consult. /[id number]/MODL
--- NOTE | 2019-01-05 12:50 | POSTANESTH ---
Post Anesthetic Evaluation Cardiovascular Status: Normal, Stable Respiratory Status: Normal, Stable Level of Consciousness/Mental Status: Can Participate in Eval, Alert and Oriented Pain Control: Adequate, Prn Tx Ordered Complications Possibly Related to Anesthesia: Other, See Comments (Patient very emotional on interview. She does not have nerve function back and cannot dorsiflex her foot. She had Dr. Emily Aguero come by to post-op and he gave her 3 explanations of the cause of the foot drop at this time, the spinal, low blood pressure during the anesthetic and a pssible insult at the surgical site. I explained it was my professional opinion the injury was not due to either the spinal nor hypotension during the case, but rather at the surgical site due to the data gathered from the SSEPs, MEPs and the intra-operative EMG and based on the straight forwaard nature of both the spinal and the anethetic. I explained the lesion looks to be at the level of the surgical site and that the neurosurgeon explained this to me as well. She and I discussed that all of her care was excellent, from Dr. Emily Aguero's point to my anesthetic and tothe ability to get data intra-op. That the re-exploration was appropriate and the nerve did not appear to be grosly injured. That nothing could've been done differenlty in order to chage the current deficit she had. I told her that, although nerve recovery is not my area of experitse that she may take a minimum of 3-6 months to get function back and that EMGs are indicated at 4 weeks post op. I told her i understand that she is a runner and that this deficit is causing anxiety and the recovery is difficult mentally. I offered her to chat with neurosurg and again with Emily Aguero if needed to reassure her this is a complication of working around nerves and that our hope is that she makes a full recovery. The time line may be months instead of days and that she can have all of my information upon DC to call at any time should she need anything. She was tearful but seemed to understand what we talked about. She understands that my professional opinion is that she received exceellent care from her entire team and that I was available to her as she moves forward in her recovery and nursing added me to the DC paperwork while I was present)
--- NOTE | 2019-01-05 13:54 | ASMTCMCOM ---
CM Note CM Note Notes: Pt had planned R KRISTINE, resides with boyfriend. Pt mother to stay with her during part of recovery. Hospitalist consulting. PT rec [facility], OT rec pending. CM to follow pt progress. Date Signed: 01/05/2019 01:53 PM Electronically Signed By:ALBERTA Hurtado
--- NOTE | 2019-01-05 17:04 | SOAPPROG ---
[facility] Progress Note Assessment/Plan: Assessment: 1 day post op Right Periacetabular Osteotomy Right foot drop Plan: Up with physical therapy BEATER LEAD/Oxycodone SCDs/ 81 mg aspirin for DVT prophylaxis Pelvis x-ray POD#3 01/05/19 17:01 Subjective: Saw patient with Dr. Olivarez. Kaitlynn is doing well this afternoon. Her pain is well controlled, Weaver is still in and she has worked with PT. She has not been able to dorsiflex her Right foot since the surgery. Objective: Vital Signs Temp Pulse Resp BP Pulse Ox 36.9 C 68 15 100/58 L 97 01/05/19 15:52 01/05/19 15:52 01/05/19 15:52 01/05/19 15:52 01/05/19 15:52 Laboratory Results 01/05/19 04:29 01/05/19 04:29 01/04/19 01/05/19 01/06/19 05:59 05:59 05:59 Intake Total 5460 Output Total 3850 2675 Balance 1610 -2675 Right Hip: dressings clean dry intact edema and ecchymosis some thigh numbness Right foot: superficial and deep peroneal nerve sensation are in tact some plantar function no dorsiflexion ICD10 Worksheet Patient Problems: Problems Problem Status Onset Post-operative pain Acute - ICD10 Problem Qualifiers (1) Post-operative pain
--- NOTE | 2019-01-05 18:21 | POSTANESTH ---
Post Anesthetic Evaluation Cardiovascular Status: Normal, Stable Respiratory Status: Normal, Stable Level of Consciousness/Mental Status: Can Participate in Eval, Alert and Oriented Pain Control: Adequate, Prn Tx Ordered Nausea/Vomiting Control: Adequate, Prn Tx Ordered (Spinal Duramorph post-op follow-up pain well controlled.)
--- NOTE | 2019-01-05 23:34 | SOAPPROG ---
[facility] Progress Note Assessment/Plan: Assessment: Plan: 01/05/19 23:19 I saw patient today with Romero and then talked to her mom over the phone ( mom lives out of state). Objective: Still no change in NV status, EHL/TA/Peroneals 0/5. Sensation bejarano she does have very weak but intact sensation of both deep and SPN Tibial nerve functions well 5/5. I explained to patient that after meticulous exploration there was not any observed damage or any indirect sign for nerve damage. Neuromonitoring did show abrupt change in conduction going from distal to proximal, and this change was 2 inches proximal to the area I was working during surgery, but within the surgical site. However at this point, 30 hours after surgery, after spinal wore off and without any change in status I would speculate that the damage relates to stretching (retraction) in the area or transient ischemia to this area which I currently can't explain. SSPE showed good intact afferent conduction which supports intact 'wiring'. The factvthat both tibial nerve and sensory parts of the peroneal nerve do work are also encouraging. I have seen only 2-3 cases before, out of hundreds of these KRISTINE cases, that a patient woke with partial or complete dropfoot with no visual explanation and in all cases the function returned within hours/days/weeks. however in these cases we saw at least some weak function back in 48 hours which doesn't seem to be the case here, suggesting her case my entail longer recovery. But based on the fact we did not observe any obvious nerve damage I don't see a reason why she would not regain full function. We will be able to refractory technician this better in the next days. I explained this to patient in person and her mom over the phone. Dr Olivarez 01/05/19 23:34 Objective: Vital Signs Temp Pulse Resp BP Pulse Ox 37.1 C 96 16 102/66 96 01/05/19 20:00 01/05/19 20:00 01/05/19 20:00 01/05/19 20:00 01/05/19 20:00 Laboratory Results 01/05/19 04:29 01/05/19 04:29 01/04/19 01/05/19 01/06/19 05:59 05:59 05:59 Intake Total 5460 1359 Output Total 3850 3875 Balance 1610 -2516 ICD10 Worksheet Patient Problems: Problems Problem Status Onset Post-operative pain Acute
[2019-01-06] MEDS: oxyCODONE IR 5 MG TAB PO SCH ×6 (02:01→22:12)
[2019-01-06] MEDS: NS 1,000 ML IV SCH (05:59)
[2019-01-06] MEDS: CALCIUM CARBONATE 500 MG TAB PO SCH (10:20)
[2019-01-06] MEDS: SENNOSIDES/DOCUSATE SODIUM TAB PO SCH ×2 (10:21→22:11)
[2019-01-06] MEDS: buPROPion XL 150 MG TAB PO SCH (10:21)
[2019-01-06] MEDS: PANTOPRAZOLE SODIUM 40 MG TAB PO SCH (10:21)
[2019-01-06] MEDS: NAPROXEN SODIUM 220 MG TAB PO SCH ×3 (10:21→22:12)
--- NOTE | 2019-01-06 20:11 | HOSPPROG ---
Hospitalist Progress Note Assessment/Plan: 1. s/p R periacetabular osteotomy POD #2, R foot drop post op -per ortho and neurosurg -PT 2. Depression -home meds 3. post op anemia -hgb yesterday 9.8 -check in AM FULL CODE NO LOCAL PCP DVT PROPHY DIPSO- unclear at this time, likely > 48 hours depending upon pain control/foot drop symptoms Subjective: 'Kaitlynn'. Pain OK with current meds. PT in room. No n/v/d. Has mcleod in place. Objective: Vital Signs Temp Pulse Resp BP Pulse Ox 99.0 F 95 18 113/73 97 01/06/19 10:00 01/06/19 10:00 01/06/19 10:00 01/06/19 10:00 01/06/19 10:00 Laboratory Results 01/05/19 04:29 01/05/19 04:29 01/05/19 01/06/19 01/07/19 11:59 11:59 11:59 Intake Total 3070 2377 Output Total 9613 4844 Balance 1610 -5116 - Pending Discharge Pending Discharge Within 24 Hours: No ICD10 Worksheet Patient Problems: Problems Problem Status Onset Post-operative pain Acute
[2019-01-07] MEDS: ASPIRIN EC 81 MG TAB PO SCH ×2 (01:10→10:05)
[2019-01-07] MEDS: oxyCODONE IR 5 MG TAB PO SCH ×6 (02:07→21:58)
[2019-01-07 05:45] LABS: PLATELET COUNT 187 10^3/uL (150-400)
[2019-01-07] MEDS: buPROPion XL 150 MG TAB PO SCH (10:05)
[2019-01-07] MEDS: PANTOPRAZOLE SODIUM 40 MG TAB PO SCH (10:05)
[2019-01-07] MEDS: CALCIUM CARBONATE 500 MG TAB PO SCH (10:06)
[2019-01-07] MEDS: SENNOSIDES/DOCUSATE SODIUM TAB PO SCH ×2 (10:06→21:56)
[2019-01-07] MEDS: NAPROXEN SODIUM 220 MG TAB PO SCH ×3 (10:07→21:56)
[2019-01-07] MEDS: POLYETHYLENE GLYCOL 3350 17 GM PKT PO PRN (17:47)
--- NOTE | 2019-01-07 19:37 | HOSPPROG ---
Hospitalist Progress Note Assessment/Plan: 1. s/p R periacetabular osteotomy POD #2, R foot drop post op -per ortho and neurosurg -PT 2. Depression -home meds 3. post op anemia -hgb yesterday 9.8 -check in AM FULL CODE NO LOCAL PCP DVT PROPHY DIPSO- unclear at this time, likely > 48 hours depending upon pain control/foot drop symptoms Objective: Vital Signs Temp Pulse Resp BP Pulse Ox 98.6 F 79 14 103/64 99 01/07/19 15:52 01/07/19 15:52 01/07/19 15:52 01/07/19 15:52 01/07/19 15:52 Laboratory Results 01/07/19 04:45 01/05/19 04:29 01/06/19 01/07/19 01/08/19 11:59 11:59 11:59 Intake Total 0835 1400 Output Total 5454 4059 5383 [facility] -5116 -1000 -4570 ICD10 Worksheet Patient Problems: Problems Problem Status Onset Post-operative pain Acute
[2019-01-08] MEDS: oxyCODONE IR 5 MG TAB PO SCH ×6 (02:08→22:10)
--- NOTE | 2019-01-08 05:48 | SOAPPROG ---
[facility] Progress Note Assessment/Plan: Assessment: 3 day post op Right Periacetabular Osteotomy Right foot drop Plan: AFO for bed rest and ambulation Up with physical therapy [employer]IOR [employer]PORATE STRATEGY MANAGER/Oxycodone SCDs/ 81 mg aspirin for DVT prophylaxis Pelvis x-ray (has yet to be done today) D/C Weaver when up to commode 01/05/19 17:01 01/08/19 05:44 01/08/19 05:48 Subjective: LATE ENTRY Kaitlynn was seen yesterday afternoon; at that time she was well pain managed with SENIOR CORPORATE STRATEGY MANAGER and Oxycodone. Weaver still in place. She has been up and ambulating in room. She now has AFO for ambulation and for bed rest. She denies any cp, no sob or nausea. Objective: Vital Signs Temp Pulse Resp BP Pulse Ox 36.9 C 75 16 112/66 95 01/08/19 04:00 01/08/19 04:00 01/08/19 04:00 01/08/19 04:00 01/08/19 04:00 Laboratory Results 01/07/19 04:45 01/05/19 04:29 01/06/19 01/07/19 01/08/19 05:59 05:59 05:59 Intake Total 1359 1800 1000 Output Total 6875 2400 5320 Balance -6616 -600 -1640 Well appearing in NAD Right hip: dressings clean and dry edema thigh numbness Right foot: Deep peroneal distrubution: sensation diminished but intact Superficial peroneal distrubution: sensation intact no dorsiflexion of foot or toes. good plantar flexion ICD10 Worksheet Patient Problems: Problems Problem Status Onset Post-operative pain Acute - ICD10 Problem Qualifiers (1) Post-operative pain
[2019-01-08] MEDS: POLYETHYLENE GLYCOL 3350 17 GM PKT PO PRN (09:22)
[2019-01-08] MEDS: SENNOSIDES/DOCUSATE SODIUM TAB PO SCH ×2 (09:23→22:10)
[2019-01-08] MEDS: buPROPion XL 150 MG TAB PO SCH (09:23)
[2019-01-08] MEDS: NAPROXEN SODIUM 220 MG TAB PO SCH ×3 (09:24→22:10)
[2019-01-08] MEDS: ASPIRIN EC 81 MG TAB PO SCH (09:24)
[2019-01-08] MEDS: PANTOPRAZOLE SODIUM 40 MG TAB PO SCH (09:24)
[2019-01-08] MEDS: CALCIUM CARBONATE 500 MG TAB PO SCH (09:24)
--- NOTE | 2019-01-08 14:04 | ASMTCMCOM ---
CM Note CM Note Notes: PT continues to rec HHC, spoke with pt who declines HC as she has an outpatient PT at [facility] she [facility]. Pt has support of boyfriend she lives with and her mother is arriving in [place] today to spend the next 10 days w pt. No CM d/c needs identified. CM available for changes/needs. D/c plan of care: Independent Date Signed: 01/08/2019 02:03 PM Electronically Signed By:ALBERTA Hurtado
--- NOTE | 2019-01-08 23:55 | HOSPPROG ---
Hospitalist Progress Note Assessment/Plan: 1. s/p R periacetabular osteotomy POD #2, R foot drop post op -per ortho and neurosurg -PT 2. Depression -home meds 3. post op anemia -hgb yesterday 9.8 -check in AM FULL CODE NO LOCAL PCP DVT PROPHY DIPSO- unclear at this time, likely > 48 hours depending upon pain control/foot drop symptoms Objective: Vital Signs Temp Pulse Resp BP Pulse Ox 97.7 F 64 15 118/67 98 01/08/19 20:00 01/08/19 20:00 01/08/19 20:00 01/08/19 20:00 01/08/19 20:00 Laboratory Results 01/08/19 05:03 01/08/19 05:03 01/07/19 01/08/19 01/09/19 11:59 11:59 11:59 Intake Total 1400 1700 Output Total 2400 8470 800 Balance -1000 -6770 -800 ICD10 Worksheet Patient Problems: Problems Problem Status Onset Post-operative pain Acute
[2019-01-09] MEDS: oxyCODONE IR 5 MG TAB PO SCH ×3 (02:12→08:53)
--- NOTE | 2019-01-09 07:46 | SOAPPROG ---
[facility] Progress Note Assessment/Plan: Assessment: Plan: 01/05/19 23:19 I saw patient today with Romero and then talked to her mom over the phone ( mom lives out of state). Objective: Still no change in NV status, EHL/TA/Peroneals 0/5. Sensation bejarano she does have very weak but intact sensation of both deep and SPN Tibial nerve functions well 5/5. I explained to patient that after meticulous exploration there was not any observed damage or any indirect sign for nerve damage. Neuromonitoring did show abrupt change in conduction going from distal to proximal, and this change was 2 inches proximal to the area I was working during surgery, but within the surgical site. However at this point, 30 hours after surgery, after spinal wore off and without any change in status I would speculate that the damage relates to stretching (retraction) in the area or transient ischemia to this area which I currently can't explain. SSPE showed good intact afferent conduction which supports intact 'wiring'. The factvthat both tibial nerve and sensory parts of the peroneal nerve do work are also encouraging. I have seen only 2-3 cases before, out of hundreds of these KRISTINE cases, that a patient woke with partial or complete dropfoot with no visual explanation and in all cases the function returned within hours/days/weeks. however in these cases we saw at least some weak function back in 48 hours which doesn't seem to be the case here, suggesting her case my entail longer recovery. But based on the fact we did not observe any obvious nerve damage I don't see a reason why she would not regain full function. We will be able to coating inspector this better in the next days. I explained this to patient in person and her mom over the phone. Dr Olivarez 01/05/19 23:34 01/09/19 07:39 Saw Kaitlynn and her mom last night (Friday) POD 4 she was in a good mood, smiling, pain very well controlled. She had finally went to the bathroom for No 2 and was relieved. Right foot is in a padded AFO, she has another one in her foot for when she stands/walks. She is filling comfortable with her NWB progression, PT/OT and will be ready for discharge Friday. Long discussion with her and mom, again, regarding the nature of the nerve injury, expectations and prognosis. At this point only Change we see today is increase in dorsal foot sensation but not motor yet. We will asses in 3 weeks when seeing her for post op visit, and plan on EMG in 4 weeks if not change is seen on the motor aspect. Incision looks good, some minimal redness under sticky tega which I removed. Discussed how important it is to avoid falls. XR from yesterday shows great correction with no change since surgery. They were understanding and in full agreement. Dr Olivarez Objective: Vital Signs Temp Pulse Resp BP Pulse Ox 36.3 C 74 15 112/62 94 01/09/19 00:00 01/09/19 00:00 01/09/19 00:00 01/09/19 00:00 01/09/19 00:00 Laboratory Results 01/08/19 05:03 01/08/19 05:03 01/08/19 01/09/19 01/10/19 05:59 05:59 05:59 Intake Total 1200 700 Output Total 7735 7894 Balance -5033 -7173 ICD10 Worksheet Patient Problems: Problems Problem Status Onset Post-operative pain Acute
[2019-01-09 08:48] VITALS: BP 104/70
[2019-01-09] MEDS: PANTOPRAZOLE SODIUM 40 MG TAB PO SCH (08:52)
[2019-01-09] MEDS: CALCIUM CARBONATE 500 MG TAB PO SCH (08:52)
[2019-01-09] MEDS: NAPROXEN SODIUM 220 MG TAB PO SCH (08:52)
[2019-01-09] MEDS: SENNOSIDES/DOCUSATE SODIUM TAB PO SCH (08:52)
[2019-01-09] MEDS: buPROPion XL 150 MG TAB PO SCH (08:53)
[2019-01-09] MEDS: ASPIRIN EC 81 MG TAB PO SCH (08:53)
== END 2019-01-09 12:33 | disposition home or self-care (01) | DRG 516 ==
LOC: F3N 05:46 → UNDOADMIN 05:46 → F3N 15:33
PROVIDERS: ADMIT Orthopaedic Surgery Sports Medicine; ATTEND Orthopaedic Surgery Sports Medicine
PROC: 0QS404Z Reposition Right Acetabulum with Internal Fixation Device, Open Approach (ICD-10-PCS; principal; 2019-01-04 07:15)
DX: Q65.89 Other specified congenital deformities of hip (principal); D62 Acute posthemorrhagic anemia; G97.82 Other postprocedural complications and disorders of nervous system; F32.9 Major depressive disorder, single episode, unspecified
CPT/HCPCS: 97116-GP; 97162-GP; 97166-GO; 97530-GO; 97530-GP; 97535-GO; C1713; J0171; J0690; J1100; J1170; J2001; J2250; J2270; J2274; J2370; J2405; J2704; J3010